=== PATIENT | male | born 1990 | race Caucasian/White ===

== ENCOUNTER 2018-11-02 10:54 | Emergency (ER) | payer BC, SELFPAY | END 2018-11-02 11:22 | disposition home or self-care (01) | LOC: BURERS 10:54 | DX: G56.01 Carpal tunnel syndrome, right upper limb (principal); K21.9 Gastro-esophageal reflux disease without esophagitis; F17.220 Nicotine dependence, chewing tobacco, uncomplicated | CPT/HCPCS: 99281 ==

== ENCOUNTER 2020-05-29 13:04 | Emergency (ER) | payer BC ==
[2020-05-29] MEDS ORDERED: Bicillin LA 1.2 MILLION UNITS/2 ML SYRINGE ONE (13:31)
[2020-05-29] MEDS ORDERED: Dexamethasone 4 MG TAB ONE (13:33)
== END 2020-05-29 13:42 | disposition home or self-care (01) ==
LOC: BURERS 13:04
DX: J02.9 Acute pharyngitis, unspecified (principal); R59.0 Localized enlarged lymph nodes; K21.9 Gastro-esophageal reflux disease without esophagitis; F17.220 Nicotine dependence, chewing tobacco, uncomplicated
CPT/HCPCS: 96372; 99283; J0561; J8540